=== PATIENT | female | born 1995 | race Caucasian/White ===

== ENCOUNTER 2021-11-02 19:56 | Inpatient (IN) | payer BC ==
[2021-11-02] MEDS ORDERED: Butorphanol 1 MG/ML SDV IVPUSH PRN (23:24)
[2021-11-02] MEDS ORDERED: Sodium Chloride 0.9% 2.5 ML Syringe FLUSH PRN (23:24)
[2021-11-02] MEDS ORDERED: Terbutaline 1 MG/ML SDV SUBCUT PRN (23:24)
[2021-11-02] MEDS ORDERED: Sodium Chloride 0.9% 20 ML SDV IV PRN (23:24)
[2021-11-02] MEDS ORDERED: Methylergonovine 0.2 MG/1 ML Amp IM PRN (23:24)
[2021-11-02] MEDS ORDERED: Misoprostol 200 MCG Tab PO PRN (23:24)
[2021-11-02] MEDS ORDERED: Tranexamic Acid 1,000 MG in Sodium Chloride 0.9% 100 ML IV PRN (23:24)
[2021-11-02] MEDS ORDERED: Sodium Chloride 0.9% 10 ML Syringe FLUSH PRN (23:24)
[2021-11-02] MEDS ORDERED: Carboprost Tromethamine 250 MCG/1 ML Amp IM PRN (23:24)
[2021-11-02] MEDS ORDERED: Misoprostol 25 MCG (1/4 of 100 MCG) Tab VAG PRN ×2 (23:24)
[2021-11-02] MEDS ORDERED: Water For Irrigation,Sterile 1,000 ML Container IRR PRN (23:24)
[2021-11-02] MEDS ORDERED: Lidocaine 1% 50 ML MDV INJECT PRN (23:24)
[2021-11-02] MEDS ORDERED: Ondansetron 4 MG/2 ML SDV IVPUSH PRN (23:24)
[2021-11-02] MEDS ORDERED: Oxytocin/0.9 % Sodium Chloride 30 UNIT/500 ML BAG IV SCH ×2 (23:30)
[2021-11-03] MEDS: Lactated Ringers 1,000 ML IV SCH ×2 (00:05→00:35)
[2021-11-03] MEDS ORDERED: Ropivacaine 100 ML ONE (00:34)
[2021-11-03] MEDS ORDERED: ePHEDrine 50 MG/ML SDV IVPUSH PRN ×2 (00:49)
[2021-11-03] MEDS ORDERED: Ropivacaine 200 MG in Premix Bag 1 BAG EPIDUR SCH (01:00)
[2021-11-03] MEDS ORDERED: Acetaminophen 500 MG Tab PO PRN ×2 (08:56)
[2021-11-03] MEDS ORDERED: Docusate Sodium 100 MG Cap PO PRN (08:56)
[2021-11-03] MEDS ORDERED: Bisacodyl 10 MG Supp RECTAL PRN (08:56)
[2021-11-03] MEDS ORDERED: oxyCODONE 5 MG Tab PO PRN (08:56)
[2021-11-03] MEDS ORDERED: Ibuprofen 400 MG Tab PO PRN (08:56)
[2021-11-03] MEDS ORDERED: Lanolin 100% Cream 7 GM Tube TOP PRN (08:56)
[2021-11-03] MEDS ORDERED: Benzocaine/Menthol 20%-0.5% Spray 78 GM Cannister TOP PRN (08:56)
[2021-11-03] MEDS: Witch Hazel Medicated Pads 40/Jar TOP PRN (10:38)
[2021-11-03] MEDS: Ibuprofen 800 MG Tab PO PRN ×2 (11:54→20:19)
[2021-11-04] MEDS: Ibuprofen 800 MG Tab PO PRN (04:28)
[2021-11-05] MEDS: Witch Hazel Medicated Pads 40/Jar TOP PRN (06:30)
== END 2021-11-05 13:45 | disposition home or self-care (01) | DRG 560 ==
LOC: MW.OBCHECK 19:56 → MW.OB 23:54 → OBSVTOIN 11-03 08:26 → MW.OB 11-03 12:50
PROVIDERS: ADMIT Obstetrics & Gynecology; ATTEND Obstetrics & Gynecology
PROC: 10E0XZZ Delivery of Products of Conception, External Approach (ICD-10-PCS; principal; 2021-11-03)
PROC: 3E0R3BZ Introduction of Anesthetic Agent into Spinal Canal, Percutaneous Approach (ICD-10-PCS; 2021-11-03)
PROC: 00HU33Z Insertion of Infusion Device into Spinal Canal, Percutaneous Approach (ICD-10-PCS; 2021-11-03)
PROC: 0KQM0ZZ Repair Perineum Muscle, Open Approach (ICD-10-PCS; 2021-11-03)
DX: O48.0 Post-term pregnancy (principal); Z3A.41 41 weeks gestation of pregnancy; Z37.0 Single live birth; O70.1 Second degree perineal laceration during delivery; O34.63 Maternal care for abnormality of vagina, third trimester; Q52.129 Other and unspecified longitudinal vaginal septum; Z20.822 Contact with and (suspected) exposure to COVID-19
CPT/HCPCS: 01967; 36415; 51702; 59025; 59409; 82803; 85014; 85018; 85027; 86592; 86850; 86900; 86901; A9270-GY; J2590; J2795; J7120; U0002

== ENCOUNTER 2025-02-05 03:39 | Inpatient (IN) | payer BC ==
[2025-02-05] MEDS ORDERED: Sodium Chloride 0.9% 10 ML Syringe FLUSH PRN (19:52)
[2025-02-05] MEDS ORDERED: Carboprost Tromethamine 250 MCG/1 mL Vial IM PRN (19:52)
[2025-02-05] MEDS ORDERED: Terbutaline 1 MG/ML SDV SUBCUT PRN (19:52)
[2025-02-05] MEDS ORDERED: Sodium Chloride 0.9% 2.5 ML Syringe FLUSH PRN (19:52)
[2025-02-05] MEDS ORDERED: Water For Irrigation,Sterile 1,000 ML Container IRR PRN (19:52)
[2025-02-05] MEDS ORDERED: Ondansetron 4 MG/2 ML SDV IVPUSH PRN (19:52)
[2025-02-05] MEDS ORDERED: Nalbuphine 10 MG/1 ML Vial IVPUSH PRN (19:52)
[2025-02-05] MEDS ORDERED: Oxytocin/0.9 % Sodium Chloride 30 UNIT/500 ML BAG IV SCH (20:00)
[2025-02-05 20:09] LABS: MEAN PLATELET VOLUME 9.5 fL (9.4-12.3); NRBC ABSOLUTE 0.00 K/uL (0.00-0.02); NRBC PERCENT 0.0 /100WBC (0.0-0.2); PLATELET COUNT,PLT 269 K/uL (150-400); RED BLOOD CELL COUNT 3.64 M/uL (4.10-5.30); WHITE BLOOD CELL COUNT,WBC 7.25 K/uL (3.9-11.3)
[2025-02-05] MEDS: Misoprostol 25 MCG (1/4 of 100 MCG) Tab VAG PRN (20:40)
[2025-02-06] MEDS ORDERED: Misoprostol 25 MCG (1/4 of 100 MCG) Tab VAG PRN
[2025-02-06] MEDS: Lactated Ringers 1,000 ML IV SCH (00:19)
[2025-02-06] MEDS: Butorphanol 1 MG/ML SDV IVPUSH PRN (01:03)
[2025-02-06] MEDS ORDERED: dexmedeTOMIDine HCl 200 MCG/2 ML SDV ONE (01:27)
[2025-02-06] MEDS ORDERED: Ropivacaine HCl/PF 200 ML ONE (01:27)
[2025-02-06] MEDS ORDERED: ePHEDrine 50 MG/ML SDV IVPUSH PRN (01:48)
[2025-02-06] MEDS: Ropivacaine HCl/PF 400 MG in Premix Bag 1 BAG EPIDUR SCH (01:54)
[2025-02-06] MEDS ORDERED: dexmedeTOMIDine HCl 200 MCG/2 ML SDV EPIDUR SCH (02:00)
[2025-02-06] MEDS: Oxytocin/0.9 % Sodium Chloride 30 UNIT/500 ML BAG IV SCH (03:44)
[2025-02-06] MEDS ORDERED: Measles, Mumps & Rubella Vaccine 0.5 ML SDV SUBCUT ONE (04:10)
[2025-02-06 04:31] LABS: PH,UMBILICAL ARTERIAL 7.42 (7.18-7.38); PH,UMBILICAL VENOUS 7.33 (7.25-7.45)
[2025-02-06] MEDS: Witch Hazel Medicated Pads 40/Jar TOP PRN (08:47)
[2025-02-06] MEDS: Benzocaine/Menthol 20%-0.5% Spray 78 GM Cannister TOP PRN (08:47)
[2025-02-07] MEDS: Lanolin 100% Cream 7 GM Tube TOP PRN (10:37)
== END 2025-02-07 13:02 | disposition home or self-care (01) | DRG 560 ==
LOC: MW.OB 03:39 → OBSVTOIN 02-06 03:39 → MW.OB 02-06 09:02
PROVIDERS: ADMIT Obstetrics & Gynecology; ATTEND Obstetrics & Gynecology
PROC: 10E0XZZ Delivery of Products of Conception, External Approach (ICD-10-PCS; principal; 2025-02-06)
PROC: 0HQ9XZZ Repair Perineum Skin, External Approach (ICD-10-PCS; 2025-02-06)
PROC: 3E0R3BZ Introduction of Anesthetic Agent into Spinal Canal, Percutaneous Approach (ICD-10-PCS; 2025-02-06)
DX: O70.0 First degree perineal laceration during delivery (principal); Z3A.39 39 weeks gestation of pregnancy; Z37.0 Single live birth; Z98.890 Other specified postprocedural states; Z79.899 Other long term (current) drug therapy
CPT/HCPCS: 01967; 36415; 51702; 59025; 59409; 82803; 85014; 85018; 85027; 86592; 86850; 86900; 86901; A9270-GY; J0595; J0665; J2371; J2590; J2795; J7120